=== PATIENT | male | born 1975 | race Caucasian/White ===

== ENCOUNTER 2017-01-15 22:04 | Emergency (ER) | payer OTHER ==
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
[~2017-01-15 22:04] MED LIST: CLONIDINE HCL0.1 MG PO; HYDROCODON-ACE1 EAC9 PO; KEFLEX500 MG PO; LEVOFLOXACIN500 MG PO; LORTAB 5/500 TA1 TA1 PO; NEURONTIN800 MG PO; NO MEDICATIONS; NORCO1 TAB 10/3 PO; SEROQUEL XR300 M1 PO
== END 2017-01-16 00:51 | disposition home or self-care (01) ==
LOC: SED 22:04
DX: S13.4XXA Sprain of ligaments of cervical spine, initial encounter (principal); S23.3XXA Sprain of ligaments of thoracic spine, initial encounter; S33.5XXA Sprain of ligaments of lumbar spine, initial encounter; F17.200 Nicotine dependence, unspecified, uncomplicated; V49.00XA Driver injured in collision with unspecified motor vehicles in nontraffic accident, initial encounter
CPT/HCPCS: 71010; 72040; 72072; 72100; 99283